=== PATIENT | male | born 1990 ===

== ENCOUNTER 2020-05-07 11:27 | Observation (INO) | payer SELFPAY ==
[2020-05-07] MEDS ORDERED: Sodium Chloride 0.9% 10 ML Syringe FLUSH PRN (13:03)
--- NOTE | 2020-05-07 13:03 | EDM.PDOC ---
ED HPI GENERAL MEDICAL PROBLEM - General Chief Complaint: General Stated Complaint: HIGH BLOOD PRESSURE, HYPERGLYCEMIA Time Seen by Provider: 05/07/20 13:02 Source of Information: Reports: Patient, Old Records, RN, RN Notes Reviewed History Limitations: Reports: No Limitations - History of Present Illness INITIAL COMMENTS - FREE TEXT/NARRATIVE: Pt sent from [facility] with Letitia (INDERJIT) reporting pt has blood sugar 470 with no known Hx of diabetes. Pt had gone to clinic with c/o dry mouth, polydipsia, and polyuria. Pt also found to have BP 160's/110. Pt denies Hx of diabetes or hypertension. Denies fever, chills, cough, chest pain, N/V/D, or dysuria. Onset: Unknown/Unsure Location: Reports: Generalized Quality: Reports: Other (Denies pain) Severity: Severe Improves with: Reports: None Worsens with: Reports: None Associated Symptoms: Reports: No Other Symptoms - Related Data Allergies Allergy/AdvReac Type Severity Reaction Status Date / Time No Known Allergies Allergy Verified 05/07/20 12:04 Home Meds: Home Meds . [No Known Home Meds] 05/07/20 [History] Past Medical History HEENT History: Reports: None Cardiovascular History: Reports: Other (See Below) Other Cardiovascular History: ventricular septal disorder- surgery at 1 years old Respiratory History: Reports: None Gastrointestinal History: Reports: None Genitourinary History: Reports: Other (See Below) Other Genitourinary History: frequent urination Musculoskeletal History: Reports: None Neurological History: Reports: None Psychiatric History: Reports: None Endocrine/Metabolic History: Reports: Obesity/BMI 30+ Hematologic History: Reports: None Immunologic History: Reports: None Oncologic (Cancer) History: Reports: None Dermatologic History: Reports: None - Infectious Disease History Infectious Disease History: Reports: None - Past Surgical History Head Surgeries/Procedures: Reports: None Social & Family History - Family History Family Medical History: No Pertinent Family History - Tobacco Use Tobacco Use Status *Q: Never Tobacco User Second Hand Smoke Exposure: No - Caffeine Use Caffeine Use: Reports: Soda - Recreational Drug Use Recreational Drug Use: No - Living Situation & Occupation Occupation: Employed ED ROS GENERAL - Review of Systems Review Of Systems: Comprehensive ROS is negative, except as noted in HPI. ED EXAM, GENERAL - Physical Exam Exam: See Below Exam Limited By: No Limitations General Appearance: Alert, No Apparent Distress, Obese Eye Exam: Bilateral Eye: EOMI, Normal Inspection, PERRL Nose: Normal Inspection, Normal Mucosa, No Blood Throat/Mouth: Normal Inspection, Normal Lips, Normal Oropharynx, Normal Voice, No Airway Compromise Head: Atraumatic, Normocephalic Neck: Normal Inspection, Supple, Non-Tender, Full Range of Motion Respiratory/Chest: No Respiratory Distress, Lungs Clear, Normal Breath Sounds, No Accessory Muscle Use, Chest Non-Tender Cardiovascular: Regular Rate, Rhythm, No Edema, Tachycardia GI/Abdominal: Normal Bowel Sounds, Soft, Non-Tender, Other (Benign obese abdomen) Back Exam: Normal Inspection. No: CVA Tenderness (L), CVA Tenderness (R) Extremities: Normal Inspection, Normal Range of Motion, Non-Tender, Normal Capillary Refill, No Pedal Edema Neurological: Alert, Oriented, CN II-XII Intact, Normal Cognition, Normal Gait, No Motor/Sensory Deficits Psychiatric: Normal Affect, Normal Mood Skin Exam: Warm, Dry, Intact, Normal Color, No Rash #1 Interpretation EKG Date: 05/07/20 Time: 13:21 Rhythm: Other (SR) Rate (Beats/Min): [address] [place]: Normal P-Wave: Present QRS: Normal ST-T: Normal QT: Normal Comparison: NA - No Prior EKG Course - Vital Signs Last Recorded V/S: Last Vital Signs Temp 98.5 F 05/07/20 11:54 Pulse 103 H 05/07/20 11:54 Resp 20 05/07/20 11:54 BP 137/94 H 05/07/20 14:42 Pulse Ox 96 05/07/20 11:54 - Orders/Labs/Meds Orders: Active Orders 24 hr Category Date Time Status EKG 12 Lead [EKG Documentation Completion] [RC] STAT Care 05/07/20 13:03 Active Glucose [Blood Glucose Check, Bedside] [RC] ONETIME Care 05/07/20 15:19 Active Peripheral IV Care [RC] . DIRECTED Care 05/07/20 13:04 Active CORONAVIRUS COVID-19 EHSAN [MOLEC] Stat Lab 05/07/20 15:35 Ordered Sodium Chloride 0.9% [Normal Saline] 1,000 ml Med 05/07/20 15:29 Ordered IV .BOLUS Sodium Chloride 0.9% [Saline Flush] Med 05/07/20 13:03 Active 10 ml FLUSH ASDIRECTED PRN Peripheral IV Insertion Adult [OM.PC] Stat Oth 05/07/20 13:03 Ordered Medication Orders Sodium Chloride (Normal Saline) 1,000 mls @ 999 mls/hr IV .BOLUS ONE Stop: 05/07/20 16:29 Sodium Chloride (Saline Flush) 10 ml FLUSH ASDIRECTED PRN PRN Reason: Keep Vein Open Last Admin: 05/07/20 13:19 Dose: 10 ml Documented by: BEAU Labs: Laboratory Tests 05/07/20 05/07/20 05/07/20 Range/Units 13:13 13:13 13:13 WBC 12.7 H (5.0-10.0) 10^3/uL RBC 5.62 (4.6-6.2) 10^6/uL Hgb 15.6 (14.0-18.0) g/dL Hct 42.5 (40.0-54.0) % MCV 75.6 L (80-100) fL MCH 27.8 (27.0-34.0) pg MCHC 36.7 H (33.0-35.0) g/dL Plt Count 264 (150-450) 10^3/uL Neut % (Auto) 73.4 (42.2-75.2) % Lymph % (Auto) 19.1 L (20.5-50.1) % [place] % (Auto) 6.0 (2-8) % Eos % (Auto) 1.3 (1.0-3.0) % Baso % (Auto) 0.2 (0.0-1.0) % D-Dimer, Quantitative 381 (0-400) ng/mL Sodium 133 L (136-145) mmol/L Potassium 4.2 (3.5-5.1) mmol/L Chloride 97 L (98-107) mmol/L Carbon Dioxide 25 (21-32) mmol/L Anion Gap 15.2 H (7-13) mEq/L BUN 13 (7-18) mg/dL Creatinine 1.07 (0.70-1.30) mg/dL Est Cr Clr Drug Dosing 100.95 mL/min Estimated GFR (MDRD) > 60 BUN/Creatinine Ratio 12.1 (No establ ref range) Glucose 495 H* (74-99) mg/dL POC Glucose (70-105) mg/dl Hemoglobin A1c (<5.7) % Calcium 8.9 (8.5-10.1) mg/dL Magnesium 2.0 (1.8-2.4) mg/dL Total Bilirubin 0.4 (0.2-1.0) mg/dL AST 23 (15-37) U/L ALT 77 H (16-63) U/L Alkaline Phosphatase 86 (46-116) U/L Troponin I < 0.017 (0.000-0.056) ng/mL Total Protein 7.8 (6.4-8.2) g/dL Albumin 3.4 (3.4-5.0) g/dL Globulin 4.4 Albumin/Globulin Ratio 0.8 TSH, Ultra Sensitive 2.13 (0.36-3.74) uIU/mL Urine Color (YELLOW) Urine Appearance (CLEAR) Urine pH (5.0-9.0) Ur Specific [place] (1.005-1.030) Urine Protein (NEGATIVE) Urine Glucose (UA) (NEGATIVE) Urine Ketones (NEGATIVE) Urine Occult Blood (NEGATIVE) Urine Nitrite (NEGATIVE) Urine Bilirubin (NEGATIVE) Urine Urobilinogen (0.2-1.0) mg/dL Ur Leukocyte Esterase (NEGATIVE) Urine Opiates Screen (NEGATIVE) Ur Oxycodone Screen (NEGATIVE) Urine Methadone Screen (NEGATIVE) Ur Barbiturates Screen (NEGATIVE) U Tricyclic Antidepress (NEGATIVE) Ur Phencyclidine Scrn (NEGATIVE) Ur Amphetamine Screen (NEGATIVE) U Methamphetamines Scrn (NEGATIVE) Urine MDMA Screen (NEGATIVE) U Benzodiazepines Scrn (NEGATIVE) Urine Cocaine Screen (NEGATIVE) U Marijuana (THC) Screen (NEGATIVE) Ketones 05/07/20 05/07/20 05/07/20 Range/Units 13:13 13:13 13:14 WBC (5.0-10.0) 10^3/uL RBC (4.6-6.2) 10^6/uL Hgb (14.0-18.0) g/dL Hct (40.0-54.0) % MCV (80-100) fL MCH (27.0-34.0) pg MCHC (33.0-35.0) g/dL Plt Count (150-450) 10^3/uL Neut % (Auto) (42.2-75.2) % Lymph % (Auto) (20.5-50.1) % [place] % (Auto) (2-8) % Eos % (Auto) (1.0-3.0) % Baso % (Auto) (0.0-1.0) % D-Dimer, Quantitative (0-400) ng/mL Sodium (136-145) mmol/L Potassium (3.5-5.1) mmol/L Chloride (98-107) mmol/L Carbon Dioxide (21-32) mmol/L Anion Gap (7-13) mEq/L BUN (7-18) mg/dL Creatinine (0.70-1.30) mg/dL Est Cr Clr Drug Dosing mL/min Estimated GFR (MDRD) BUN/Creatinine Ratio (No establ ref range) Glucose (74-99) mg/dL POC Glucose (70-105) mg/dl Hemoglobin A1c 10.4 H (<5.7) % Calcium (8.5-10.1) mg/dL Magnesium (1.8-2.4) mg/dL Total Bilirubin (0.2-1.0) mg/dL AST (15-37) U/L ALT (16-63) U/L Alkaline Phosphatase (46-116) U/L Troponin I (0.000-0.056) ng/mL Total Protein (6.4-8.2) g/dL Albumin (3.4-5.0) g/dL Globulin Albumin/Globulin Ratio TSH, Ultra Sensitive (0.36-3.74) uIU/mL Urine Color Yellow (YELLOW) Urine Appearance Clear (CLEAR) Urine pH 5.5 (5.0-9.0) Ur Specific [place] 1.010 (1.005-1.030) Urine Protein Negative (NEGATIVE) Urine Glucose (UA) 500 H (NEGATIVE) Urine Ketones Negative (NEGATIVE) Urine Occult Blood Negative (NEGATIVE) Urine Nitrite Negative (NEGATIVE) Urine Bilirubin Negative (NEGATIVE) Urine Urobilinogen 0.2 (0.2-1.0) mg/dL Ur Leukocyte Esterase Negative (NEGATIVE) Urine Opiates Screen (NEGATIVE) Ur Oxycodone Screen (NEGATIVE) Urine Methadone Screen (NEGATIVE) Ur Barbiturates Screen (NEGATIVE) U Tricyclic Antidepress (NEGATIVE) Ur Phencyclidine Scrn (NEGATIVE) Ur Amphetamine Screen (NEGATIVE) U Methamphetamines Scrn (NEGATIVE) Urine MDMA Screen (NEGATIVE) U Benzodiazepines Scrn (NEGATIVE) Urine Cocaine Screen (NEGATIVE) U Marijuana (THC) Screen (NEGATIVE) Ketones Negative 05/07/20 05/07/20 05/07/20 Range/Units 13:14 13:20 15:16 WBC (5.0-10.0) 10^3/uL RBC (4.6-6.2) 10^6/uL Hgb (14.0-18.0) g/dL Hct (40.0-54.0) % MCV (80-100) fL MCH (27.0-34.0) pg MCHC (33.0-35.0) g/dL Plt Count (150-450) 10^3/uL Neut % (Auto) (42.2-75.2) % Lymph % (Auto) (20.5-50.1) % [place] % (Auto) (2-8) % Eos % (Auto) (1.0-3.0) % Baso % (Auto) (0.0-1.0) % D-Dimer, Quantitative (0-400) ng/mL Sodium (136-145) mmol/L Potassium (3.5-5.1) mmol/L Chloride (98-107) mmol/L Carbon Dioxide (21-32) mmol/L Anion Gap (7-13) mEq/L BUN (7-18) mg/dL Creatinine (0.70-1.30) mg/dL Est Cr Clr Drug Dosing mL/min Estimated GFR (MDRD) BUN/Creatinine Ratio (No establ ref range) Glucose (74-99) mg/dL POC Glucose 451 H* 422 H* (70-105) mg/dl Hemoglobin A1c (<5.7) % Calcium (8.5-10.1) mg/dL Magnesium (1.8-2.4) mg/dL Total Bilirubin (0.2-1.0) mg/dL AST (15-37) U/L ALT (16-63) U/L Alkaline Phosphatase (46-116) U/L Troponin I (0.000-0.056) ng/mL Total Protein (6.4-8.2) g/dL Albumin (3.4-5.0) g/dL Globulin Albumin/Globulin Ratio TSH, Ultra Sensitive (0.36-3.74) uIU/mL Urine Color (YELLOW) Urine Appearance (CLEAR) Urine pH (5.0-9.0) Ur Specific [place] (1.005-1.030) Urine Protein (NEGATIVE) Urine Glucose (UA) (NEGATIVE) Urine Ketones (NEGATIVE) Urine Occult Blood (NEGATIVE) Urine Nitrite (NEGATIVE) Urine Bilirubin (NEGATIVE) Urine Urobilinogen (0.2-1.0) mg/dL Ur Leukocyte Esterase (NEGATIVE) Urine Opiates Screen Negative (NEGATIVE) Ur Oxycodone Screen Negative (NEGATIVE) Urine Methadone Screen Negative (NEGATIVE) Ur Barbiturates Screen Negative (NEGATIVE) U Tricyclic Antidepress Negative (NEGATIVE) Ur Phencyclidine Scrn Negative (NEGATIVE) Ur Amphetamine Screen Negative (NEGATIVE) U Methamphetamines Scrn Negative (NEGATIVE) Urine MDMA Screen Negative (NEGATIVE) U Benzodiazepines Scrn Negative (NEGATIVE) Urine Cocaine Screen Negative (NEGATIVE) U Marijuana (THC) Screen Negative (NEGATIVE) Ketones Meds: Medications Generic Name Dose Route Start Last Admin Trade Name Freq PRN Reason Stop Dose Admin Sodium Chloride 1,000 mls @ 999 mls/hr 05/07/20 15:29 Normal Saline IV 05/07/20 16:29 .BOLUS ONE Sodium Chloride 10 ml 05/07/20 13:03 05/07/20 13:19 Saline Flush FLUSH 10 ml ASDIRECTED PRN Administration Keep Vein Open Discontinued Medications Generic Name Dose Route Start Last Admin Trade Name Freq PRN Reason Stop Dose Admin Hydralazine HCl 20 mg 05/07/20 14:00 Apresoline IVPUSH 05/07/20 14:01 ONETIME ONE Insulin Human Regular 10 unit 05/07/20 13:59 05/07/20 14:41 Humulin R SUBCUT 05/07/20 14:00 10 units ONETIME ONE Administration Lisinopril 10 mg 05/07/20 14:01 05/07/20 14:42 Prinivil PO 05/07/20 14:02 10 mg ONETIME ONE Administration Metformin HCl 1,000 mg 05/07/20 14:03 05/07/20 14:42 Glucophage PO 05/07/20 14:04 1,000 mg ONETIME ONE Administration Departure - Departure Time of Disposition: 15:31 (admitted to Dr. Ferrer) Disposition: Refer to Observation Condition: Fair Clinical Impression: New onset type 2 diabetes mellitus, Uncontrolled hypertension, Morbid obesity with BMI of 60.0-69.9, adult Hyperglycemia due to type 2 diabetes mellitus Qualifiers: Diabetes mellitus maintenance specialist insulin use: without maintenance specialist use Qualified Code( s): E11.65 - Type 2 diabetes mellitus with hyperglycemia Forms: ED Department Discharge Sepsis Event Note (ED) - Evaluation Sepsis Screening Result: No Definite Risk - Focused Exam Vital Signs: Vital Signs Temp Pulse Resp BP BP BP Pulse Ox 05/07/20 14:42 137/94 H 05/07/20 11:54 98.5 F 103 H 20 149/106 H 96 05/07/20 11:35 166/116 H 165/120 H - My Orders Last 24 Hours: My Active Orders 05/07/20 13:03 EKG 12 Lead [EKG Documentation Completion] [RC] STAT Sodium Chloride 0.9% [Saline Flush] 10 ml FLUSH ASDIRECTED PRN Peripheral IV Insertion Adult [OM.PC] Stat 05/07/20 13:04 Peripheral IV Care [RC] . DIRECTED 05/07/20 15:29 Sodium Chloride 0.9% [Normal Saline] 1,000 ml IV .BOLUS 05/07/20 15:35 CORONAVIRUS COVID-19 EHSAN [MOLEC] Stat - Assessment/Plan Last 24 Hours: My Active Orders 05/07/20 13:03 EKG 12 Lead [EKG Documentation Completion] [RC] STAT Sodium Chloride 0.9% [Saline Flush] 10 ml FLUSH ASDIRECTED PRN Peripheral IV Insertion Adult [OM.PC] Stat 05/07/20 13:04 Peripheral IV Care [RC] . DIRECTED 05/07/20 15:29 Sodium Chloride 0.9% [Normal Saline] 1,000 ml IV .BOLUS 05/07/20 15:35 CORONAVIRUS COVID-19 EHSAN [MOLEC] Stat
[2020-05-07 13:50] LABS: ANION GAP 15.2 mEq/L (7-13); CHLORIDE,CL 97 mmol/L (98-107); SODIUM,NA 133 mmol/L (136-145)
[2020-05-07] MEDS ORDERED: Insulin Regular, Human 100 Units/ML 3 ML Vial SUBCUT ONE (13:59)
[2020-05-07] MEDS ORDERED: hydrALAZINE 20 MG/ML SDV IVPUSH ONE (14:00)
[2020-05-07] MEDS ORDERED: Lisinopril 10 MG Tab PO ONE (14:01)
[2020-05-07] MEDS ORDERED: metFORMIN 500 MG Tab PO ONE (14:03)
[2020-05-07 14:10] LABS: HEMOGLOBIN A1C 10.4 % (<5.7)
[2020-05-07] MEDS ORDERED: Sodium Chloride 0.9% 1,000 ML IV ONE (15:29)
[2020-05-07] MEDS ORDERED: Acetaminophen 325 MG Tab PO PRN (16:28)
[2020-05-07] MEDS ORDERED: Glucagon,Human Recombinant 1 MG Vial IM PRN (16:33)
[2020-05-07] MEDS ORDERED: 50% Dextrose in Water 50 ML Syringe IV PRN (16:33)
[2020-05-07] MEDS ORDERED: Insulin Lispro 100 Units/ML 3 ML Vial SUBCUT STA (16:38)
[2020-05-07] MEDS: Sodium Chloride 0.45% 1,000 ML IV SCH ×3 (17:17→19:29)
[2020-05-07] MEDS ORDERED: Insulin Lispro 100 Units/ML 3 ML Vial SUBCUT SCH (19:00)
--- NOTE | 2020-05-07 19:38 | PCM.HP ---
H&P History of Present Illness - General Date of Service: 05/07/20 Admit Problem/Dx: Admission Diagnosis/Problem Admission Diagnosis/Problem Diabetic complication - History of Present Illness Initial Comments - Free Text/Narative: 30M w/ pmh morbid obesity p/w polyuria and dry mouth. Symptoms have been subacute for ~2 weeks but severe in past 2 days. Pt was seen in clinic an referred to the ED w/ FSGs 400-500, tachycardia, dizziness. In the ED pt received 10U IVP regular insulin and fluids. He also received IV hydralazine and lisinopril for marked HT. He denies any fever, cough, dysuria, abdominal pain, nausea, vomiting, chest pains, diarrhea, areas of skin pain. - Related Data Allergies/Adverse Reactions: Allergies Allergy/AdvReac Type Severity Reaction Status Date / Time No Known Allergies Allergy Verified 05/07/20 16:40 Home Medications: Home Meds . [No Known Home Meds] 05/07/20 [History] Past Medical History HEENT History: Reports: None Cardiovascular History: Reports: Other (See Below) Other Cardiovascular History: ventricular septal disorder- surgery at 1 years old Respiratory History: Reports: None Gastrointestinal History: Reports: None Genitourinary History: Reports: Other (See Below) Other Genitourinary History: frequent urination Musculoskeletal History: Reports: None Neurological History: Reports: None Psychiatric History: Reports: Anxiety, Depression, Other (See Below) Other Psychiatric History: cutting as a child Endocrine/Metabolic History: Reports: Obesity/BMI 30+ Hematologic History: Reports: None Immunologic History: Reports: None Oncologic (Cancer) History: Reports: None Dermatologic History: Reports: None - Infectious Disease History Infectious Disease History: Reports: None - Past Surgical History Head Surgeries/Procedures: Reports: None Other Cardiovascular Surgeries/Procedures: ventricular septal disorder- surgery at 1 years old Male Surgical History: Reports: None Endocrine Surgical History: Reports: None Social & Family History - Family History Family Medical History: No Pertinent Family History (no family hx of autoimmune disease, early onset DM) - Tobacco Use Tobacco Use Status *Q: Never Tobacco User Second Hand Smoke Exposure: No - Caffeine Use Caffeine Use: Reports: Soda - Recreational Drug Use Recreational Drug Use: No - Living Situation & Occupation Occupation: Employed H&P Review of Systems - Review of Systems: Review Of Systems: See Below (see HPI) Exam - Exam Exam: See Below - Vital Signs Vital Signs: Last Vital Signs Temp 97.7 F 05/07/20 16:28 Pulse 93 05/07/20 16:28 Resp 20 05/07/20 16:28 BP 118/81 05/07/20 16:28 Pulse Ox 97 05/07/20 16:28 Weight: 419 lb - Exam Quality Assessment: No: Supplemental Oxygen General: Alert, Oriented HEENT: Conjunctiva Clear, Other (sunken eyes) Neck: Supple Lungs: Clear to Auscultation, Normal Respiratory Effort Cardiovascular: Regular Rate, Regular Rhythm, Tachycardia GI/Abdominal Exam: Normal Bowel Sounds, Soft, Non-Tender, No Distention, Other (morbidly obese) Extremities: Normal Inspection, No Pedal Edema Skin: Warm, Dry, Intact Neurological: Cranial Nerves Intact Neuro Extensive - Mental Status: Alert, Oriented x3, Normal Mood/Affect Psychiatric: Alert, Normal Affect, Normal Mood - Patient Data Lab Results Last 24 hrs: Laboratory Results - last 24 hr 05/07/20 05/07/20 05/07/20 Range/Units 13:13 13:13 13:13 WBC 12.7 H (5.0-10.0) 10^3/uL RBC 5.62 (4.6-6.2) 10^6/uL Hgb 15.6 (14.0-18.0) g/dL Hct 42.5 (40.0-54.0) % MCV 75.6 L (80-100) fL MCH 27.8 (27.0-34.0) pg MCHC 36.7 H (33.0-35.0) g/dL Plt Count 264 (150-450) 10^3/uL Neut % (Auto) 73.4 (42.2-75.2) % Lymph % (Auto) 19.1 L (20.5-50.1) % [place] % (Auto) 6.0 (2-8) % Eos % (Auto) 1.3 (1.0-3.0) % Baso % (Auto) 0.2 (0.0-1.0) % D-Dimer, Quantitative 381 (0-400) ng/mL Sodium 133 L (136-145) mmol/L Potassium 4.2 (3.5-5.1) mmol/L Chloride 97 L (98-107) mmol/L Carbon Dioxide 25 (21-32) mmol/L Anion Gap 15.2 H (7-13) mEq/L BUN 13 (7-18) mg/dL Creatinine 1.07 (0.70-1.30) mg/dL Est Cr Clr Drug Dosing 100.95 mL/min Estimated GFR (MDRD) > 60 BUN/Creatinine Ratio 12.1 (No establ ref range) Glucose 495 H* (74-99) mg/dL POC Glucose (70-105) mg/dl Hemoglobin A1c (<5.7) % Calcium 8.9 (8.5-10.1) mg/dL Magnesium 2.0 (1.8-2.4) mg/dL Total Bilirubin 0.4 (0.2-1.0) mg/dL AST 23 (15-37) U/L ALT 77 H (16-63) U/L Alkaline Phosphatase 86 (46-116) U/L Troponin I < 0.017 (0.000-0.056) ng/mL Total Protein 7.8 (6.4-8.2) g/dL Albumin 3.4 (3.4-5.0) g/dL Globulin 4.4 Albumin/Globulin Ratio 0.8 TSH, Ultra Sensitive 2.13 (0.36-3.74) uIU/mL Urine Color (YELLOW) Urine Appearance (CLEAR) Urine pH (5.0-9.0) Ur Specific [place] (1.005-1.030) Urine Protein (NEGATIVE) Urine Glucose (UA) (NEGATIVE) Urine Ketones (NEGATIVE) Urine Occult Blood (NEGATIVE) Urine Nitrite (NEGATIVE) Urine Bilirubin (NEGATIVE) Urine Urobilinogen (0.2-1.0) mg/dL Ur Leukocyte Esterase (NEGATIVE) Urine Opiates Screen (NEGATIVE) Ur Oxycodone Screen (NEGATIVE) Urine Methadone Screen (NEGATIVE) Ur Barbiturates Screen (NEGATIVE) U Tricyclic Antidepress (NEGATIVE) Ur Phencyclidine Scrn (NEGATIVE) Ur Amphetamine Screen (NEGATIVE) U Methamphetamines Scrn (NEGATIVE) Urine MDMA Screen (NEGATIVE) U Benzodiazepines Scrn (NEGATIVE) Urine Cocaine Screen (NEGATIVE) U Marijuana (THC) Screen (NEGATIVE) Ketones SARS CoV-2 RNA Rapid EHSAN (NEGATIVE) 05/07/20 05/07/20 05/07/20 Range/Units 13:13 13:13 13:14 WBC (5.0-10.0) 10^3/uL RBC (4.6-6.2) 10^6/uL Hgb (14.0-18.0) g/dL Hct (40.0-54.0) % MCV (80-100) fL MCH (27.0-34.0) pg MCHC (33.0-35.0) g/dL Plt Count (150-450) 10^3/uL Neut % (Auto) (42.2-75.2) % Lymph % (Auto) (20.5-50.1) % [place] % (Auto) (2-8) % Eos % (Auto) (1.0-3.0) % Baso % (Auto) (0.0-1.0) % D-Dimer, Quantitative (0-400) ng/mL Sodium (136-145) mmol/L Potassium (3.5-5.1) mmol/L Chloride (98-107) mmol/L Carbon Dioxide (21-32) mmol/L Anion Gap (7-13) mEq/L BUN (7-18) mg/dL Creatinine (0.70-1.30) mg/dL Est Cr Clr Drug Dosing mL/min Estimated GFR (MDRD) BUN/Creatinine Ratio (No establ ref range) Glucose (74-99) mg/dL POC Glucose (70-105) mg/dl Hemoglobin A1c 10.4 H (<5.7) % Calcium (8.5-10.1) mg/dL Magnesium (1.8-2.4) mg/dL Total Bilirubin (0.2-1.0) mg/dL AST (15-37) U/L ALT (16-63) U/L Alkaline Phosphatase (46-116) U/L Troponin I (0.000-0.056) ng/mL Total Protein (6.4-8.2) g/dL Albumin (3.4-5.0) g/dL Globulin Albumin/Globulin Ratio TSH, Ultra Sensitive (0.36-3.74) uIU/mL Urine Color Yellow (YELLOW) Urine Appearance Clear (CLEAR) Urine pH 5.5 (5.0-9.0) Ur Specific [place] 1.010 (1.005-1.030) Urine Protein Negative (NEGATIVE) Urine Glucose (UA) 500 H (NEGATIVE) Urine Ketones Negative (NEGATIVE) Urine Occult Blood Negative (NEGATIVE) Urine Nitrite Negative (NEGATIVE) Urine Bilirubin Negative (NEGATIVE) Urine Urobilinogen 0.2 (0.2-1.0) mg/dL Ur Leukocyte Esterase Negative (NEGATIVE) Urine Opiates Screen (NEGATIVE) Ur Oxycodone Screen (NEGATIVE) Urine Methadone Screen (NEGATIVE) Ur Barbiturates Screen (NEGATIVE) U Tricyclic Antidepress (NEGATIVE) Ur Phencyclidine Scrn (NEGATIVE) Ur Amphetamine Screen (NEGATIVE) U Methamphetamines Scrn (NEGATIVE) Urine MDMA Screen (NEGATIVE) U Benzodiazepines Scrn (NEGATIVE) Urine Cocaine Screen (NEGATIVE) U Marijuana (THC) Screen (NEGATIVE) Ketones Negative SARS CoV-2 RNA Rapid EHSAN (NEGATIVE) 05/07/20 05/07/20 05/07/20 Range/Units 13:14 13:20 15:16 WBC (5.0-10.0) 10^3/uL RBC (4.6-6.2) 10^6/uL Hgb (14.0-18.0) g/dL Hct (40.0-54.0) % MCV (80-100) fL MCH (27.0-34.0) pg MCHC (33.0-35.0) g/dL Plt Count (150-450) 10^3/uL Neut % (Auto) (42.2-75.2) % Lymph % (Auto) (20.5-50.1) % [place] % (Auto) (2-8) % Eos % (Auto) (1.0-3.0) % Baso % (Auto) (0.0-1.0) % D-Dimer, Quantitative (0-400) ng/mL Sodium (136-145) mmol/L Potassium (3.5-5.1) mmol/L Chloride (98-107) mmol/L Carbon Dioxide (21-32) mmol/L Anion Gap (7-13) mEq/L BUN (7-18) mg/dL Creatinine (0.70-1.30) mg/dL Est Cr Clr Drug Dosing mL/min Estimated GFR (MDRD) BUN/Creatinine Ratio (No establ ref range) Glucose (74-99) mg/dL POC Glucose 451 H* 422 H* (70-105) mg/dl Hemoglobin A1c (<5.7) % Calcium (8.5-10.1) mg/dL Magnesium (1.8-2.4) mg/dL Total Bilirubin (0.2-1.0) mg/dL AST (15-37) U/L ALT (16-63) U/L Alkaline Phosphatase (46-116) U/L Troponin I (0.000-0.056) ng/mL Total Protein (6.4-8.2) g/dL Albumin (3.4-5.0) g/dL Globulin Albumin/Globulin Ratio TSH, Ultra Sensitive (0.36-3.74) uIU/mL Urine Color (YELLOW) Urine Appearance (CLEAR) Urine pH (5.0-9.0) Ur Specific [place] (1.005-1.030) Urine Protein (NEGATIVE) Urine Glucose (UA) (NEGATIVE) Urine Ketones (NEGATIVE) Urine Occult Blood (NEGATIVE) Urine Nitrite (NEGATIVE) Urine Bilirubin (NEGATIVE) Urine Urobilinogen (0.2-1.0) mg/dL Ur Leukocyte Esterase (NEGATIVE) Urine Opiates Screen Negative (NEGATIVE) Ur Oxycodone Screen Negative (NEGATIVE) Urine Methadone Screen Negative (NEGATIVE) Ur Barbiturates Screen Negative (NEGATIVE) U Tricyclic Antidepress Negative (NEGATIVE) Ur Phencyclidine Scrn Negative (NEGATIVE) Ur Amphetamine Screen Negative (NEGATIVE) U Methamphetamines Scrn Negative (NEGATIVE) Urine MDMA Screen Negative (NEGATIVE) U Benzodiazepines Scrn Negative (NEGATIVE) Urine Cocaine Screen Negative (NEGATIVE) U Marijuana (THC) Screen Negative (NEGATIVE) Ketones SARS CoV-2 RNA Rapid EHSAN (NEGATIVE) 05/07/20 05/07/20 05/07/20 Range/Units 15:43 17:03 19:00 WBC (5.0-10.0) 10^3/uL RBC (4.6-6.2) 10^6/uL Hgb (14.0-18.0) g/dL Hct (40.0-54.0) % MCV (80-100) fL MCH (27.0-34.0) pg MCHC (33.0-35.0) g/dL Plt Count (150-450) 10^3/uL Neut % (Auto) (42.2-75.2) % Lymph % (Auto) (20.5-50.1) % [place] % (Auto) (2-8) % Eos % (Auto) (1.0-3.0) % Baso % (Auto) (0.0-1.0) % D-Dimer, Quantitative (0-400) ng/mL Sodium (136-145) mmol/L Potassium (3.5-5.1) mmol/L Chloride (98-107) mmol/L Carbon Dioxide (21-32) mmol/L Anion Gap (7-13) mEq/L BUN (7-18) mg/dL Creatinine (0.70-1.30) mg/dL Est Cr Clr Drug Dosing mL/min Estimated GFR (MDRD) BUN/Creatinine Ratio (No establ ref range) Glucose (74-99) mg/dL POC Glucose 367 H 333 H (70-105) mg/dl Hemoglobin A1c (<5.7) % Calcium (8.5-10.1) mg/dL Magnesium (1.8-2.4) mg/dL Total Bilirubin (0.2-1.0) mg/dL AST (15-37) U/L ALT (16-63) U/L Alkaline Phosphatase (46-116) U/L Troponin I (0.000-0.056) ng/mL Total Protein (6.4-8.2) g/dL Albumin (3.4-5.0) g/dL Globulin Albumin/Globulin Ratio TSH, Ultra Sensitive (0.36-3.74) uIU/mL Urine Color (YELLOW) Urine Appearance (CLEAR) Urine pH (5.0-9.0) Ur Specific [place] (1.005-1.030) Urine Protein (NEGATIVE) Urine Glucose (UA) (NEGATIVE) Urine Ketones (NEGATIVE) Urine Occult Blood (NEGATIVE) Urine Nitrite (NEGATIVE) Urine Bilirubin (NEGATIVE) Urine Urobilinogen (0.2-1.0) mg/dL Ur Leukocyte Esterase (NEGATIVE) Urine Opiates Screen (NEGATIVE) Ur Oxycodone Screen (NEGATIVE) Urine Methadone Screen (NEGATIVE) Ur Barbiturates Screen (NEGATIVE) U Tricyclic Antidepress (NEGATIVE) Ur Phencyclidine Scrn (NEGATIVE) Ur Amphetamine Screen (NEGATIVE) U Methamphetamines Scrn (NEGATIVE) Urine MDMA Screen (NEGATIVE) U Benzodiazepines Scrn (NEGATIVE) Urine Cocaine Screen (NEGATIVE) U Marijuana (THC) Screen (NEGATIVE) Ketones SARS CoV-2 RNA Rapid EHSAN Negative (NEGATIVE) Result Diagrams: 05/07/20 13:13 05/07/20 13:13 Problem List Initiated/Reviewed/Updated: No Orders Last 24hrs: Active Orders 24 hr Category Date Time Status Admission Diagnosis [ADT] Urgent ADT 05/07/20 15:47 Ordered Patient Status [ADT] Routine ADT 05/07/20 15:47 Active Patient Status [ADT] Routine ADT 05/07/20 16:28 Active Blood Glucose Check, Bedside [RC] Q2H Care 05/07/20 16:28 Active Influenza Vaccine Charge [RC] .DISCHARGE Care 05/07/20 17:34 Active Oxygen Therapy [RC] .PRN Care 05/07/20 16:28 Active Up ad Kaylin [RC] ASDIRECTED Care 05/07/20 16:28 Active VTE/DVT Education [RC] PER UNIT ROUTINE Care 05/07/20 16:28 Active Vital Signs [RC] 00,04,08,12,16,20 Care 05/07/20 16:28 Active Consult to Diabetic Nurse Specialist [CONS] Routine Cons 05/07/20 16:28 Active Consult to Project Planner [CONS] Routine Cons 05/07/20 16:28 Active Consistent Carbohydrate Diet [DIET] Diet 05/07/20 Dinner Active ANTIPANCREATIC ISLET CELLS [REF] Routine Lab 05/08/20 06:00 Ordered C-PEPTIDE, SERUM [REF] Routine Lab 05/08/20 06:00 Ordered CBC WITH AUTO DIFF [HEME] AM Lab 05/08/20 05:11 Ordered COMPREHENSIVE METABOLIC PN,CMP [CHEM] AM Lab 05/08/20 05:11 Ordered DENISE-65 AUTOANTIBODY [REF] Routine Lab 05/08/20 06:00 Ordered LIPID PANEL [CHEM] AM Lab 05/08/20 05:11 Ordered MAGNESIUM [CHEM] AM Lab 05/08/20 05:11 Ordered PHOSPHORUS [CHEM] AM Lab 05/08/20 05:11 Ordered Acetaminophen [TylenoL] Med 05/07/20 16:28 Active 650 mg PO Q4H PRN Dextrose 50% in Water Med 05/07/20 16:33 Active 50 ml IV ASDIRECTED PRN Enoxaparin [Lovenox] Med 05/07/20 21:00 Active 40 mg SUBCUT BID Glucagon,Human Recombinant [GlucaGen] Med 05/07/20 16:33 Active 1 mg IM ASDIRECTED PRN Insulin Glarg,Human.Rec.Analog [LantUS] Med 05/07/20 21:00 Active 40 unit SUBCUT BEDTIME Insulin Lispro [HumaLOG] Med 05/08/20 08:00 Active 15 unit SUBCUT TIDMEALS Insulin Lispro [HumaLOG] Med 05/07/20 21:00 Active See Protocol SUBCUT WITHMEALSANDBED Pharmacy to Dose - InFluenza V [Pharmacy to Dose - Med 05/08/20 09:00 Active InFluenza Vaccine] 1 each IM DAILY Sodium Chloride 0.45% 1,000 ml Med 05/07/20 16:30 Active IV ASDIRECTED Sodium Chloride 0.45% 1,000 ml Med 05/07/20 19:30 Active IV ASDIRECTED Sodium Chloride 0.9% [Saline Flush] Med 05/07/20 13:03 Active 10 ml FLUSH ASDIRECTED PRN Peripheral IV Insertion Adult [OM.PC] Stat Oth 05/07/20 13:03 Ordered Resuscitation Status Routine Resus Stat 05/07/20 16:28 Ordered Medication Orders Acetaminophen (Tylenol) 650 mg PO Q4H PRN PRN Reason: Pain (Mild 1-3)/fever Dextrose/Water (Dextrose 50% In Water) 50 ml IV ASDIRECTED PRN PRN Reason: Hypoglycemia Enoxaparin Sodium (Lovenox) 40 mg SUBCUT BID FREDY Glucagon (Glucagen) 1 mg IM ASDIRECTED PRN PRN Reason: Hypoglycemia Sodium Chloride (Sodium Chloride 0.45%) 1,000 mls @ 999 mls/hr IV ASDIRECTED FREDY Stop: 05/08/20 17:31 Last Infusion: 05/07/20 19:25 Dose: 999 mls/hr Documented by: Admin: 05/07/20 18:20 Dose: 999 mls/hr Documented by: Infusion: 05/07/20 18:18 Dose: 999 mls/hr Documented by: Admin: 05/07/20 17:17 Dose: 999 mls/hr Documented by: STARLA Sodium Chloride (Sodium Chloride 0.45%) 1,000 mls @ 150 mls/hr IV ASDIRECTED FREDY Last Admin: 05/07/20 19:29 Dose: 150 mls/hr Documented by: JAY Influenza Virus Vaccine (Pharmacy To Dose - Influenza Vaccine) 1 each IM DAILY [facility] Insulin Glargine (Lantus) 40 unit SUBCUT BEDTIME FREDY Insulin Human Lispro (Humalog) 15 unit SUBCUT TIDMEALS FREDY Insulin Human Lispro (Humalog) 0 unit SUBCUT WITHMEALSANDBED FREDY; Protocol Sodium Chloride (Saline Flush) 10 ml FLUSH ASDIRECTED PRN PRN Reason: Keep Vein Open Last Admin: 05/07/20 13:19 Dose: 10 ml Documented by: BEAU Assessment/Plan Comment:: #new onset DM - no DKA - most likely type 2 however given A1c only 10 in relation to FSG 400s (one would expect 12-14) suggests rapid worsening of his glycemia - it is possible this is GIL - will check c-peptide, GAD65 and anti- islet ab in am - FSG rapidly decreasing w/ q2h CHUY - will switch to weight based basal/bolus regimen tonight - if well then will add janumet in the morning - will need extensive diabetic teaching #clinical dehydration - aggressive fluid resuscitation - switch to 1/2 NS to avoid hyperchloremic acidosis #morbid obesity - pt was counseled extensively on weight loss PPX - bariatric dose LMWH Full code
[2020-05-07] MEDS ORDERED: Insulin Glarg,Human.Rec.Analog 100 Unit/ML SUBCUT SCH (21:00)
[2020-05-07] MEDS: Insulin Lispro 100 Units/ML 3 ML Vial SUBCUT SCH (21:42)
[2020-05-07] MEDS: Enoxaparin 40 MG/0.4 ML Syringe SUBCUT SCH (21:47)
[2020-05-08] MEDS: Sodium Chloride 0.45% 1,000 ML IV SCH (02:25)
[2020-05-08 07:04] LABS: ANION GAP 14.4 mEq/L (7-13); CHLORIDE,CL 102 mmol/L (98-107); SODIUM,NA 139 mmol/L (136-145)
[2020-05-08] MEDS: Enoxaparin 40 MG/0.4 ML Syringe SUBCUT SCH (08:17)
[2020-05-08] MEDS: Insulin Lispro 100 Units/ML 3 ML Vial SUBCUT SCH ×4 (08:17→12:17)
[2020-05-08] MEDS ORDERED: FLU Vacc QS2020-21 36MOS UP/PF 60 MCG/0.5 ML Syringe IM ONE (11:15)
[2020-05-08] MEDS ORDERED: metFORMIN 500 MG Tab PO SCH (18:00)
--- NOTE | 2020-05-08 19:30 | PCM.DCSUM1 ---
Discharge Summary - Hospital Course Free Text/Narrative:: 30M w/ pmh morbid obesity p/w polyuria and dry mouth. He was sent over from clinic w/ FSGs 500s w/ associated tachycardia and dizziness. He was ruled out for DKA but was severely dehydrated. He was admitted and received aggressive fluid resuscitation. He was initiated on a weight based insulin regimen for his apparent new onset diabetes. This is assumed to be type 2 but pt may indeed have late onset type 1 w/ residual partial insulin production. The appropriate serologic testing was sent but is likely a send out lab. He received extensive diabetic education and counseling not only on diabetes but also regarding weight loss. Diagnosis: Stroke: No - Discharge Data Discharge Date: 05/08/20 Discharge Disposition: Home, Self-Care 01 Condition: Good - Referral to Home Health Primary Care Physician: PCP None - Patient Summary/Data Consults: Consultations 05/07/20 16:28 Consult to Diabetic Nurse Specialist [CONS] Routine Consult to [employer] [place] [CONS] Routine - Patient Instructions Diet: Diabetic Diet - Discharge Plan Prescriptions/Med Rec: metFORMIN [Glucophage] 1,000 mg PO BIDMEALS #120 tablet Insulin Lispro [Insulin Lispro Kwikpen U-100] 20 unit SQ TIDMEALS #6 insuln.pen Insulin Glarg,Human.Rec.Analog [Lantus Solostar] 45 units .XX BEDTIME #5 pen Home Medications: Home Meds Insulin Glarg,Human.Rec.Analog [Lantus Solostar] 45 units .XX BEDTIME #5 pen 05/08/20 [Rx] Insulin Lispro [Insulin Lispro Kwikpen U-100] 20 unit SQ TIDMEALS #6 insuln.pen 05/08/20 [Rx] metFORMIN [Glucophage] 1,000 mg PO BIDMEALS #120 tablet 05/08/20 [Rx] Patient Handouts: Hyperglycemia, [id number], Metformin tablets, Insulin Glargine injection, Insulin Lispro injection - Discharge Summary/Plan Comment DC Time >30 min.: Yes (40 min) - General Info Date of Service: 05/08/20 - Patient Data Vitals - Most Recent: Last Vital Signs Temp 97.8 F 05/08/20 11:51 Pulse 86 05/08/20 11:51 Resp 18 05/08/20 11:51 BP 138/94 H 05/08/20 11:51 Pulse Ox 97 05/08/20 11:51 Weight - Most Recent: 419 lb I&O - Last 24 hours: Intake & Output 05/08/20 05/08/20 05/08/20 06:59 14:59 22:59 Intake Total 1000 Balance 1000 Lab Results - Last 24 hrs: Laboratory Results - last 24 hr 05/07/20 05/08/20 05/08/20 Range/Units 20:44 06:25 06:25 WBC 9.1 (5.0-10.0) 10^3/uL RBC 5.26 (4.6-6.2) 10^6/uL Hgb 14.8 (14.0-18.0) g/dL Hct 41.1 (40.0-54.0) % MCV 78.1 L (80-100) fL MCH 28.1 (27.0-34.0) pg MCHC 36.0 H (33.0-35.0) g/dL Plt Count 228 (150-450) 10^3/uL Neut % (Auto) 64.7 (42.2-75.2) % Lymph % (Auto) 25.8 (20.5-50.1) % [place] % (Auto) 6.7 (2-8) % Eos % (Auto) 2.6 (1.0-3.0) % Baso % (Auto) 0.2 (0.0-1.0) % Sodium 139 (136-145) mmol/L Potassium 4.4 (3.5-5.1) mmol/L Chloride 102 (98-107) mmol/L Carbon Dioxide 27 (21-32) mmol/L Anion Gap 14.4 H (7-13) mEq/L BUN 12 (7-18) mg/dL Creatinine 0.85 (0.70-1.30) mg/dL Est Cr Clr Drug Dosing 127.08 mL/min Estimated GFR (MDRD) > 60 BUN/Creatinine Ratio 14.1 (No establ ref range) Glucose 315 H (74-99) mg/dL POC Glucose 297 H (70-105) mg/dl Calcium 8.6 (8.5-10.1) mg/dL Phosphorus 3.7 (2.6-4.7) mg/dL Magnesium 1.9 (1.8-2.4) mg/dL Total Bilirubin 0.4 (0.2-1.0) mg/dL AST 31 (15-37) U/L ALT 81 H (16-63) U/L Alkaline Phosphatase 75 (46-116) U/L Total Protein 7.2 (6.4-8.2) g/dL Albumin 3.1 L (3.4-5.0) g/dL Globulin 4.1 Albumin/Globulin Ratio 0.76 Triglycerides 143 (0-149) mg/dL Cholesterol 160 (0-199) mg/dL LDL Cholesterol, Calc 97 (0-100) mg/dL HDL Cholesterol 34 L (40-59) mg/dL 05/08/20 05/08/20 Range/Units 07:42 11:36 WBC (5.0-10.0) 10^3/uL RBC (4.6-6.2) 10^6/uL Hgb (14.0-18.0) g/dL Hct (40.0-54.0) % MCV (80-100) fL MCH (27.0-34.0) pg MCHC (33.0-35.0) g/dL Plt Count (150-450) 10^3/uL Neut % (Auto) (42.2-75.2) % Lymph % (Auto) (20.5-50.1) % [place] % (Auto) (2-8) % Eos % (Auto) (1.0-3.0) % Baso % (Auto) (0.0-1.0) % Sodium (136-145) mmol/L Potassium (3.5-5.1) mmol/L Chloride (98-107) mmol/L Carbon Dioxide (21-32) mmol/L Anion Gap (7-13) mEq/L BUN (7-18) mg/dL Creatinine (0.70-1.30) mg/dL Est Cr Clr Drug Dosing mL/min Estimated GFR (MDRD) BUN/Creatinine Ratio (No establ ref range) Glucose (74-99) mg/dL POC Glucose 307 H 307 H (70-105) mg/dl Calcium (8.5-10.1) mg/dL Phosphorus (2.6-4.7) mg/dL Magnesium (1.8-2.4) mg/dL Total Bilirubin (0.2-1.0) mg/dL AST (15-37) U/L ALT (16-63) U/L Alkaline Phosphatase (46-116) U/L Total Protein (6.4-8.2) g/dL Albumin (3.4-5.0) g/dL Globulin Albumin/Globulin Ratio Triglycerides (0-149) mg/dL Cholesterol (0-199) mg/dL LDL Cholesterol, Calc (0-100) mg/dL HDL Cholesterol (40-59) mg/dL Med Orders - Current: Current Medications Discontinued Medications Acetaminophen (Tylenol) 650 mg PO Q4H PRN PRN Reason: Pain (Mild 1-3)/fever Dextrose/Water (Dextrose 50% In Water) 50 ml IV ASDIRECTED PRN PRN Reason: Hypoglycemia Enoxaparin Sodium (Lovenox) 40 mg SUBCUT BID [facility] Last Admin: 05/08/20 08:17 Dose: 40 mg Documented by: Glucagon (Glucagen) 1 mg IM ASDIRECTED PRN PRN Reason: Hypoglycemia Hydralazine HCl (Apresoline) 20 mg IVPUSH ONETIME ONE Stop: 05/07/20 14:01 Last Admin: 05/07/20 15:51 Dose: Not Given Documented by: Sodium Chloride (Normal Saline) 1,000 mls @ 999 mls/hr IV .BOLUS ONE Stop: 05/07/20 16:29 Last Infusion: 05/07/20 17:18 Dose: Infused Documented by: Sodium Chloride (Sodium Chloride 0.45%) 1,000 mls @ 999 mls/hr IV ASDIRECTED FREDY Stop: 05/08/20 17:31 Last Infusion: 05/07/20 19:25 Dose: Infused Documented by: Sodium Chloride (Sodium Chloride 0.45%) 1,000 mls @ 150 mls/hr IV ASDIRECTED [facility] Last Admin: 05/08/20 02:25 Dose: 150 mls/hr Documented by: Influenza Virus Vaccine (Pharmacy To Dose - Influenza Vaccine) 1 each IM DAILY [facility] Last Admin: 05/08/20 11:49 Dose: Not Given Documented by: Influenza Virus Vaccine (Afluria Quad 2019- (3yr Up)) 60 mcg IM .ONCE ONE Stop: 05/08/20 11:16 Last Admin: 05/08/20 13:07 Dose: 60 mcg Documented by: Insulin Glargine (Lantus) 40 unit SUBCUT BEDTIME [facility] Last Admin: 05/07/20 21:44 Dose: 40 units Documented by: Insulin Human Lispro (Humalog) 0 unit SUBCUT Q2H [facility]; Protocol Last Admin: 05/07/20 19:05 Dose: 12 unit Documented by: Insulin Human Lispro (Humalog) 15 unit SUBCUT STAT STA Stop: 05/07/20 16:39 Last Admin: 05/07/20 17:06 Dose: 15 units Documented by: Insulin Human Lispro (Humalog) 15 unit SUBCUT TIDMEALS [facility] Last Admin: 05/08/20 12:12 Dose: 15 units Documented by: Insulin Human Lispro (Humalog) 0 unit SUBCUT WITHMEALSANDBED [facility]; Protocol Last Admin: 05/08/20 12:17 Dose: 12 units Documented by: Insulin Human Regular (Humulin R) 10 unit SUBCUT ONETIME ONE Stop: 05/07/20 14:00 Last Admin: 05/07/20 14:41 Dose: 10 units Documented by: Lisinopril (Prinivil) 10 mg PO ONETIME ONE Stop: 05/07/20 14:02 Last Admin: 05/07/20 14:42 Dose: 10 mg Documented by: Metformin HCl (Glucophage) 1,000 mg PO ONETIME ONE Stop: 05/07/20 14:04 Last Admin: 05/07/20 14:42 Dose: 1,000 mg Documented by: Metformin HCl (Glucophage) 1,000 mg PO BIDMEALS [facility] Sodium Chloride (Saline Flush) 10 ml FLUSH ASDIRECTED PRN PRN Reason: Keep Vein Open Last Admin: 05/07/20 13:19 Dose: 10 ml Documented by: - Exam Quality Assessment: Denies: Supplemental Oxygen General: Reports: Alert, Oriented HEENT: Reports: Pupils Equal Neck: Reports: Supple Lungs: Reports: Clear to Auscultation, Normal Respiratory Effort Cardiovascular: Reports: Regular Rate, Regular Rhythm, No Murmurs GI/Abdominal Exam: Normal Bowel Sounds, Soft, Non-Tender, No Distention, Other (morbid obesity) Back Exam: Reports: Normal Inspection Extremities: Other (obese extremities) Neurological: Reports: No New Focal Deficit
== END 2020-05-08 14:25 | disposition home or self-care (01) ==
LOC: DL.ED 11:27 → DL.MS 15:47
PROVIDERS: ADMIT Internal Medicine; ATTEND Internal Medicine
DX: E11.65 Type 2 diabetes mellitus with hyperglycemia (principal); E86.0 Dehydration; E66.01 Morbid (severe) obesity due to excess calories; Z98.84 Bariatric surgery status; Z79.4 Long term (current) use of insulin; Z20.822 Contact with and (suspected) exposure to COVID-19; Z68.44 Body mass index [BMI] 60.0-69.9, adult
CPT/HCPCS: 36415; 80053; 80061; 80305; 81003; 82009; 82962; 83036; 83735; 84100; 84443; 84484; 84681; 85025; 85379; 86341; 87635; 90471; 90686; 93005; 99285; A9270; J1650; J1815; J7030; 93010; 99217; 99218; 99284; G0008; G0378; U0002